=== PATIENT | female | born 1980 | race Caucasian/White ===

== ENCOUNTER 2017-01-27 17:39 | Emergency (ER) ==
[2017-01-27 17:49] VITALS: BP 120/75; TEMP 100.2; BMI 33.3
--- NOTE | 2017-01-27 18:07 | ED.PDOC ---
General ED Provider: Dr. BHUPENDRA RATLIFF Chief Complaint: Earache Stated Complaint: left ear pain, drainage Time Seen by Physician: 17:40 Mode of Arrival: Walk-In Information Source: Patient Exam Limitations: No limitations Primary Care Provider: CADY BARRETT Nursing and Triage Documentation Reviewed and Agree: Yes EENT Complaint Exam - Ear Complaint/Exam Symptoms Are: Still present Timing: Intermittent Initial Severity: Moderate Current Severity: Moderate Character: Reports: Dull pain Aggravating: Reports: None Alleviating: Reports: None Associated Signs and Symptoms: Reports: URI symptoms. Denies: Ear trauma, Ear swelling, Discharge, Fever, Hearing loss, Bleeding, Sore throat, Headache, Foreign body sensation, Rash, Pain to external ear, Pain to external face Ear Surgical History: None Vesicles to External Pinna: No Vesicles to Tragus: No TMJ Tenderness: None Mastoid Tenderness: None Tragal Tenderness: None External Canal: Normal Tympanic Membrane: Erythema (left) Review of Systems - Review Of Systems Constitutional: Reports: No symptoms Eyes: Reports: No symptoms Ears, Nose, Mouth, Throat: Reports: Ear pain (left), Ear discharge (left) Respiratory: Reports: No symptoms Cardiac: Reports: No symptoms GI: Reports: No symptoms : Reports: No symptoms Musculoskeletal: Reports: No symptoms Skin: Reports: No symptoms Neurological: Reports: No symptoms Endocrine: Reports: No symptoms Hematologic/Lymphatic: Reports: No symptoms All Other Systems: Reviewed and Negative Past Medical History - Past Medical History Previously Healthy: Yes Endocrine: Reports: None Cardiovascular: Reports: None Respiratory: Reports: None Hematological: Reports: None Gastrointestinal: Reports: None Genitourinary: Reports: None Neuro/Psych: Reports: None Musculoskeletal: Reports: None Cancer: Reports: None Last Menstrual Period: 1 1/2 weeks - Surgical History General Surgical History: Reports: None - Family History Family History: Reports: None - Social History Smoking Status: Current every day smoker, Light tobacco smoker Hx Substance Use: No Alcohol Screening: Occasionally Physical Exam - Physical Exam Appearance: Well-appearing, No pain distress, Well-nourished Eyes: ROSALINA, EOMI, Conjunctiva clear ENT: Erythema (left tm) Respiratory: Airway patent, Breath sounds clear, Breath sounds equal, Respirations nonlabored Cardiovascular: RRR, Pulses normal, No rub, No murmur GI/: Soft, Nontender, No masses, Bowel sounds normal, No Organomegaly Musculoskeletal: Normal strength, ROM intact, No edema, No calf tenderness Skin: Warm, Dry, Normal color Neurological: Sensation intact, Motor intact, Reflexes intact, Cranial nerves intact, Alert, Oriented Psychiatric: Affect appropriate, Mood appropriate Critical Care Note - Critical Care Note Total Time (mins): 0 Course - Course Vital Signs: Temp Pulse Resp BP Pulse Ox 01/27/17 17:40 100.2 F H 76 20 120/75 97 Departure - Departure Time of Disposition: 18:07 Disposition: HOME SELF-CARE Discharge Problem: Left otitis media Qualifiers: Otitis media type: suppurative Chronicity: unspecified Qualified Code(s): H66.42 - Suppurative otitis media, unspecified, left ear Instructions: Otitis Media (ED) Condition: Good Pt referred to PMD for follow-up: Yes Additional Instructions: Please call your Family Physician as soon as possible to schedule a follow-up appointment. Allergies/Adverse Reactions: Allergies No Known Allergies Allergy (Verified 01/27/17 17:45) Home Medications: Ambulatory Orders 1 [No Reported Medications] 08/24/15
== END 2017-01-27 18:17 | disposition home or self-care (01) ==
LOC: ED 17:39
DX: H66.42 Suppurative otitis media, unspecified, left ear (principal); F17.210 Nicotine dependence, cigarettes, uncomplicated
CPT/HCPCS: 99282

== ENCOUNTER 2017-08-02 18:02 | Outpatient (CLI) | END 2017-08-02 18:03 | disposition left against medical advice (07) | LOC: AMBL 18:02 | PROVIDERS: ATTEND Family Medicine | DX: Z04.3 Encounter for examination and observation following other accident (principal); V89.2XXA Person injured in unspecified motor-vehicle accident, traffic, initial encounter ==

== ENCOUNTER 2017-08-05 14:39 | Outpatient (CLI) ==
--- NOTE | 2017-08-05 16:01 | DI ---
EXAM: Cervical spine five views, including oblique views HISTORY: Neck pain COMPARISON: None TECHNIQUE: Five views cervical spine were performed including oblique views FINDINGS: Vertebral bodies normal height. No fracture. No subluxation. Mild intervertebral disc s pace narrowing C3-C4. Multilevel uncovertebral and facet hypertrophy. Degenerative changes cause mi ld bilateral neural foraminal narrowing at C3-C4. Prevertebral soft tissues appear normal. IMPRESSION: Chronic discogenic degenerative disease and facet arthrosis.
--- NOTE | 2017-08-05 16:02 | DI ---
EXAM: Thoracic spine three view HISTORY: Thoracic back pain COMPARISON: None TECHNIQUE: Three views thoracic spine were performed FINDINGS: Minimal rightward curvature of the upper to mid thoracic spine. Vertebral bodies normal h eight. No fracture. No subluxation. Mild multilevel intervertebral disc space narrowing. IMPRESSION: Mild degenerative changes.
--- NOTE | 2017-08-05 16:03 | DI ---
EXAM: Lumbar spine five views, including oblique views HISTORY: Low back pain COMPARISON: None TECHNIQUE: Five views lumbar spine were performed including oblique view FINDINGS: Sacroiliac joints intact. Sacral arcuate intact. Vertebral bodies normal height. No fra cture. No subluxation. Mild to moderate intervertebral disc space narrowing L4-L5.. Multilevel mil d facet arthrosis. IMPRESSION: Chronic discogenic degenerative disease and facet arthrosis.
== END 2017-08-05 14:40 | disposition home or self-care (01) ==
LOC: RAD 14:39
PROVIDERS: ATTEND Physician Assistant
DX: M54.5 Low back pain (principal); M54.6 Pain in thoracic spine; M54.2 Cervicalgia

== ENCOUNTER 2017-09-21 11:58 | Emergency (ER) | payer OTHER ==
[2017-09-21 12:04] VITALS: BP 109/72; TEMP 99.3; BMI 31.8
--- NOTE | 2017-09-21 12:43 | ED.PDOC ---
General ED Provider: Dr. BHUPENDRA RATLIFF Chief Complaint: Sore Throat Stated Complaint: Pt is sent by her PCP with c/o difficuty opening her mouth and sore throat. Pt states that she has had c/o these symptom for the past one week which did not resolved with many OTC medications. Pt states difficulty swallowing, but denies difficulty breathing, headache, ear pain or fever Time Seen by Physician: 12:30 Mode of Arrival: Walk-In Information Source: Patient Exam Limitations: No limitations Primary Care Provider: CADY BARRETT Referred to ED by: PCP Nursing and Triage Documentation Reviewed and Agree: Yes Reviewed sepsis parameters & appropriate labs ordered?: Yes System Inflammatory Response Syndrome: Not Applicable Sepsis Protocol: For patient's 13 years and over: Temp is 96.8 and below OR 101 and greater Pulse >90 BPM Resp >20/minute Acutely Altered Mental Status Are patient's symptoms suggestive of a new infection, such as: -Pneumonia -Skin, Soft Tissue -Endocarditis -UTI -Bone, Joint Infection -Implantable Device -Acute Abdominal Infection -Wound Infection -Meningitis -Blood Stream Catheter Infection -Unknown EENT Complaint Exam - Throat Complaint/Exam Onset/Duration: 7 days ago Symptoms Are: Still present Timimg: Constant Initial Severity: Moderate Current Severity: Moderate Aggravating: Reports: None Alleviating: Reports: None Associated Signs and Symptoms: Reports: Dysphagia. Denies: Fever, Drooling, Foreign body sensation, Chills, Cough, Wheezing, Hoarseness, Sinus discomfort, Nasal congestion, Difficulty breathing, Lethargy, Irritability, Decreased activity, Vomiting, Diarrhea, Decreased hearing, Ear drainage Related History: Reports: Similar Episode Uvula Midline: No (difficulty opening her mouth fully to examine ) Mariann-tonsillar Fluctuence: No (unable to open mouth fully to examine ) Scarlatinaform Rash Present: No Lesions: Absent: Lip, Gums, Tongue, Buccal Mucosa, Pharynx Exanthem: Absent: Lip, Gums, Tongue, Buccal Mucosa, Pharynx Vesicles: Absent: Lip, Gums, Tongue, Buccal Mucosa, Pharynx Stridor Present: No Sinus Tenderness Present: No Tonsillar Hypertrophy Present: No (hard to examine ) Tonsillar Exudate Present: No (hard to examine ) Mariann-tonsillar Swelling Present: No Adenopathy Present: No Splenomegaly Present: No Differential Diagnoses: Pharyngitis, Tonsillitis Review of Systems - Review Of Systems Constitutional: Reports: No symptoms Eyes: Reports: No symptoms Ears, Nose, Mouth, Throat: Reports: Mouth pain, Throat pain Respiratory: Reports: No symptoms Cardiac: Reports: No symptoms GI: Reports: No symptoms : Reports: No symptoms Musculoskeletal: Reports: No symptoms Skin: Reports: No symptoms Neurological: Reports: No symptoms Endocrine: Reports: No symptoms Hematologic/Lymphatic: Reports: No symptoms All Other Systems: Reviewed and Negative Past Medical History - Past Medical History Previously Healthy: Yes Endocrine: Reports: None Cardiovascular: Reports: None Respiratory: Reports: None Hematological: Reports: None Gastrointestinal: Reports: None Genitourinary: Reports: None Neuro/Psych: Reports: None Musculoskeletal: Reports: None Cancer: Reports: None Last Menstrual Period: september 01, 2017 - Surgical History General Surgical History: Reports: None - Family History Family History: Reports: None - Social History Smoking Status: Current every day smoker, Light tobacco smoker Hx Substance Use: No Alcohol Screening: Occasionally Physical Exam - Physical Exam Appearance: Well-appearing Ill-appearing: Mild Pain Distress: None Eyes: ROSALINA, EOMI, Conjunctiva clear ENT: Erythema (left sided tonsialr enlargment) Neck: Supple Respiratory: Airway patent, Breath sounds clear, Breath sounds equal, Respirations nonlabored Cardiovascular: RRR, Pulses normal, No rub, No murmur GI/: Soft, Nontender, No masses, Bowel sounds normal, No Organomegaly Musculoskeletal: Normal strength, ROM intact, No edema, No calf tenderness Skin: Warm, Dry, Normal color Neurological: Sensation intact Psychiatric: Affect appropriate, Mood appropriate Critical Care Note - Critical Care Note Total Time (mins): 0 Course - Course Hematology/Chemistry: 09/21/17 12:24 09/21/17 12:24 Orders, Labs, Meds: Lab Review 09/21/17 12:24 Infectious [place] Assay Negative Orders Category Date Time Status NPO REMINDER: IMAGING ONCE CARE 09/21/17 12:14 Completed ED IV/MEDIPORT/POWERPORT .ONCE EMERGENCY 09/21/17 12:14 Active CBC W/ AUTO DIFF Stat LAB 09/21/17 12:24 Received COMPREHENSIVE METABOLIC PANEL Stat LAB 09/21/17 12:24 Received MOLECULAR GROUP A STREP Stat LAB 09/21/17 12:24 Received MONONUCLOSIS SCREEN Stat LAB 09/21/17 12:24 Completed SERUM Stat LAB 09/21/17 12:24 Received 0.9 % Sodium Chloride [Saline Flush] MEDS 09/21/17 12:14 Active 1 syr IVF PRN PRN CT SOFT TISSUE NECK W/CONTRAST Stat RADS 09/21/17 12:13 Ordered Medications Generic Name Dose Route Start Last Admin Trade Name Freq PRN Reason Stop Dose Admin Sodium Chloride 1 syr 09/21/17 12:14 Saline Flush IVF PRN PRN To flush IV Vital Signs: Temp Pulse Resp BP Pulse Ox 09/21/17 11:59 99.3 F 80 16 109/72 97 Departure - Departure Time of Disposition: 15:05 Disposition: HOME SELF-CARE Discharge Problem: Peritonsillar abscess Instructions: Pharyngitis (ED), Tonsillitis (ED) Condition: Good Pt referred to PMD for follow-up: Yes IPMP verified?: No Additional Instructions: Please call your Family Physician as soon as possible to schedule a follow-up appointment. Allergies/Adverse Reactions: Allergies No Known Allergies Allergy (Verified 09/21/17 12:06) Home Medications: Ambulatory Orders 1 [No Reported Medications] 08/24/15
[2017-09-21] MEDS ORDERED: DECADRON 4 MG/ML SDV IM STA (13:48)
--- NOTE | 2017-09-21 14:09 | CT ---
EXAM: CT soft tissue neck with contrast. HISTORY: Neck pain with difficulty swallowing. Swollen tonsils. COMPARISON: None available. TECHNIQUE: Multiple axial images of the neck were obtained following intravenous administration of 7 5 mL of Omnipaque 350, low osmolar. Images were reformatted in the sagittal and coronal planes. FINDINGS: Circumscribed fluid collection in the left peritonsillar soft tissues measures approximate ly 3.1 x 2.5 x 2.2 cm on axial image 33 coronal image 27. There is moderate enlargement of the adeno ids. Some airway narrowing noted at the level of the left palatine tonsil. Epiglottis and laryngeal structures are unremarkable. Subglottic airway is normal in caliber. The parotid and submandibular glands are normal. Thyroid gland is normal in size. Left level II lym ph node measures 1.1 cm short axis on axial image 38 with right-sided level II lymph node measuring 1 cm on axial image 37. Other nonenlarged lymph nodes are present in the neck. Vascular structures o f the neck are patent. No intracranial or intraorbital abnormality identified. The lung apices are clear. No acute osseous abnormality identified. IMPRESSION: 1. Large left peritonsillar abscess measuring 3.1 x 2.5 x 2.2 cm. 2. Moderate enlargement adenoids. 3. Probable reactive cervical lymphadenopathy.
== END 2017-09-21 15:30 | disposition short-term general hospital (02) ==
LOC: ED 11:58
DX: J36 Peritonsillar abscess (principal); F17.210 Nicotine dependence, cigarettes, uncomplicated
CPT/HCPCS: 36415; 80053; 84703; 85025; 86308; 87651; 96372; 99285